=== PATIENT | male | born 1985 | race Asian ===

== ENCOUNTER 2024-12-08 11:12 | Emergency (ER) | payer OTHER ==
[~2024-12-08] VITALS: Ht 167.6 cm; Wt 88.6 kg
[2024-12-08 11:30] VITALS: TEMP 98.4
[2024-12-08] MEDS ORDERED: FLUO-418 PO (11:48)
[2024-12-08] MEDS ORDERED: CHOLESTEROL PO (11:48)
[2024-12-08] MEDS: ACETAMINOPHEN 500 MG TABLET PO ONE (12:04)
[2024-12-08] MEDS ORDERED: ACET-3385 PO (13:41)
[2024-12-08] MEDS ORDERED: IBUP-1492 PO (13:41)
[2024-12-08 14:00] VITALS: BP 129/75; PULSE 68; RESP 17; O2SAT 97
== END 2024-12-08 14:41 | disposition home or self-care (01) ==
LOC: EMS 11:12
DX: S16.1XXA Strain of muscle, fascia and tendon at neck level, initial encounter (principal); V29.99XA Rider (driver) (passenger) of other motorcycle injured in unspecified traffic accident, initial encounter; Y93.89 Activity, other specified; Y92.410 Unspecified street and highway as the place of occurrence of the external cause; Y99.8 Other external cause status
CPT/HCPCS: 70450; 72125; 99284